=== PATIENT | male | born 1955 | race Caucasian/White ===

== ENCOUNTER 2016-05-04 08:38 | Day surgery (SDC) | payer OTHER ==
[~2016-05-04] VITALS: Ht 180.3 cm; Wt 102.0 kg
[~2016-05-04 08:38] MED LIST: 0.9% Sodium Chloride 1,000 ML IV SCH; ASPI81TA2 PO; CAR8A PO; CELE200C PO; METO25TA99 PO; MULT-1018 PO; PRAV40TA PO; Sodium Chloride LOK Flush 10 mL Syringe IV PRN; TERA10CA5 PO; TEST200V20 IM; fentaNYL-PF 50 mCg/mL 2 mL Inj IVPUSH PRN
[2016-05-04 09:03] VITALS: BP 133/92; PULSE 72; RESP 20; O2SAT 94
[2016-05-04 10:04] VITALS: BP 122/70; PULSE 65; RESP 16; O2SAT 94
[2016-05-04 10:15] VITALS: BP 109/69; PULSE 68; RESP 16; O2SAT 93
--- NOTE | 2016-05-04 10:20 | ENDO ---
[address] [address] ENDOSCOPY PROCEDURE PATIENT: SHERRIE PARRISH : 1955 MR#: [id number] ADMIT: 05/04/2016 JOB ID: [id number] PROCEDURE: Colonoscopy. INDICATION: Screening. ANESTHESIA: Patient's ASA classification is two. Mallampati score is two. MEDICATIONS: 1. Versed 3 mg. 2. Fentanyl 75 mcg. INSTRUMENT USED: PCF H 190 DL. PREPARATION QUALITY: Fair. PROCEDURE DETAILS: After informed consent was obtained, the patient was brought into the GI suite, where he was placed on oxygen via nasal cannula and monitored with continuous pulse oximeter, telemetry, and blood pressure monitoring. A time-out was performed, then he was placed in the left lateral decubitus position and medications were administered for sedation. Digital rectal exam with palpation of the prostate was performed which was unremarkable. The colonoscope was then inserted into the rectum and advanced under direct visualization to the cecum, which was identified by the presence of the ileocecal valve and appendiceal orifice. Once the cecum was reached, the colonoscope was withdrawn back into the rectum as the mucosa and lumen were examined. In the rectum, retroflexion was performed. Following retroflexion, the remaining air in the rectum was suctioned and the procedure was completed. FINDINGS: 1. In the sigmoid colon there was an approximately 5 mm sessile polyp that was removed with a hot snare. 2. Retroflexed views in the rectum were unremarkable. IMPRESSION: Sigmoid colon polyp. RECOMMENDATIONS: 1. Avoid NSAIDs and anticoagulants for 72 hours. 2. Repeat colonoscopy in five years. COMPLICATIONS: None. ESTIMATED BLOOD LOSS: Zero.
[2016-05-04 10:21] VITALS: BP 119/80; PULSE 68; RESP 16; O2SAT 96
--- NOTE | 2016-05-07 12:13 | PATH ---
SURGICAL PATHOLOGY Attending Physician:Js Carrera CASE STATUS: Signed Out PATIENT NAME: SHERRIE PARRISH PID: [id number] : 1955 DATE COLLECTED:05/04/2016 16:37 SPECIMEN: Colon, Biopsy CLINICAL HISTORY: A: SIGMOID POLYP X1 FINAL DIAGNOSIS: 1.SIGMOID COLON POLYP: TUBULAR ADENOMA. ICD10 CODE D12.5 GROSS DESCRIPTION: The specimen is received in one formalin filled container labeled with the patient's name, sublabeled "sigmoid polyp" and consists of a 0.3 x 0.3 x 0.2 CM portion of tissue which is entirely submitted in one cassette. 05/04/2016 DAC MICRO DESCRIPTION: See diagnosis. ICD-9 CODES: CPT CODES: 1: 91423 Electronically Signed Out David Suarez MD [facility] [address], [place] [address] Technical component performed at [facility], [facility] [address], [address]
== END 2016-05-04 23:59 | disposition home or self-care (01) ==
LOC: END 08:38
PROVIDERS: ATTEND Internal Medicine Gastroenterology
DX: Z12.11 Encounter for screening for malignant neoplasm of colon (principal); D12.5 Benign neoplasm of sigmoid colon; Z86.010 Personal history of colon polyps; Z79.899 Other long term (current) drug therapy
CPT/HCPCS: 45385; J2250; J7030